=== PATIENT | female | born 1995 | race Hispanic/Latino ===

== ENCOUNTER 2018-02-03 11:53 | Observation (INO) | payer OTHER, MEDICAID ==
[~2018-02-03] VITALS: Ht 154.9 cm; Wt 63.0 kg
[2018-02-03 12:14] VITALS: BP 118/75
[2018-02-03 12:31] LABS: APPEARANCE,URINE Clear (CLEAR); BILIRUBIN,URINE Negative (NEGATIVE); COLOR,URINE Yellow (YELLOW); GLUCOSE, URINE (UA) Negative (NEGATIVE); KETONES,URINE Negative (NEGATIVE); LEUKOCYTE ESTERASE ,URINE Trace (NEGATIVE); NITRATE,URINE Negative (NEGATIVE); OCCULT BLOOD,URINE Negative (NEGATIVE); PROTEIN,URINE Negative (NEGATIVE); UROBILINOGEN,URINE 0.2 mg/dL (0.2-1.0)
[2018-02-03 13:22] LABS: BACTERIA,URINE Rare /HPF (None Seen); RBC,URINE 0-1 /HPF (0-1); SQUAMOUS EPITHELIAL CELL,UR Few /HPF (0-2)
== END 2018-02-03 13:27 | disposition home or self-care (01) ==
LOC: EDH 11:53 → LDH 12:06
PROVIDERS: ADMIT Obstetrics & Gynecology; ATTEND Obstetrics & Gynecology
DX: O26.893 Other specified pregnancy related conditions, third trimester (principal); R10.2 Pelvic and perineal pain; O99.283 Endocrine, nutritional and metabolic diseases complicating pregnancy, third trimester; E03.9 Hypothyroidism, unspecified; Z3A.38 38 weeks gestation of pregnancy
CPT/HCPCS: 81001; 82120; 99285; G0378

== ENCOUNTER 2018-02-08 05:49 | Inpatient (IN) | payer OTHER, MEDICAID ==
[~2018-02-08] VITALS: Ht 154.9 cm; Wt 65.3 kg
[2018-02-08] MEDS ORDERED: LACTATED RINGERS 1000ML 1,000 ML IV PRN (05:52)
[2018-02-08] MEDS ORDERED: LACTATED RINGERS 500 ML 500 ML IV PRN (06:00)
[2018-02-08] MEDS ORDERED: EPHEDRINE SULFATE 50 MG/ML AMPULE IVP PRN ×2 (06:00→19:15)
[2018-02-08] MEDS ORDERED: OXYTOCIN 10 USP UNITS/ML 20 UNIT in LACTATED RINGERS 1000ML 1,000 ML IV SCH (06:00)
[2018-02-08] MEDS ORDERED: NALOXONE HCL 0.4 MG/1 ML ML IV PRN (06:00)
[2018-02-08 06:52] LABS: APPEARANCE,URINE CLEAR (CLEAR); BILIRUBIN,URINE NEGATIVE (NEGATIVE); COLOR,URINE YELLOW (YELLOW); GLUCOSE, URINE (UA) NEGATIVE (NEGATIVE); KETONES,URINE NEGATIVE (NEGATIVE); LEUKOCYTE ESTERASE ,URINE NEGATIVE (NEGATIVE); NITRATE,URINE NEGATIVE (NEGATIVE); OCCULT BLOOD,URINE NEGATIVE (NEGATIVE); PROTEIN,URINE NEGATIVE (NEGATIVE); UROBILINOGEN,URINE 0.2 mg/dL (0.2-1.0)
[2018-02-08 07:09] LABS: HEMATOCRIT 35.6 % (36-48); MEAN CORPUSCULAR HGB CONC 35.7 g/dL (32.0-36.0); MEAN CORPUSCULAR VOLUME 89.8 fL (79-99); NUCLEATED RED BLOOD CELLS 0.1 % (0.0-0.19); PLATELET COUNT (AUTO) 166 K/uL (130-400); RED BLOOD CELL COUNT(AUTO) 3.97 MIL/uL (4.00-5.50); WHITE BLOOD COUNT (AUTO) 8.2 K/uL (4.8-10.8)
[2018-02-08] MEDS ORDERED: OXYTOCIN 10 USP UNITS/ML ONE ×2 (07:34→18:31)
[2018-02-08] MEDS: BUTORPHANOL TARTRATE 2 MG/ML IVP PRN ×3 (09:41→15:49)
[2018-02-08] MEDS ORDERED: OXYTOCIN-LR 20 UNITS/1000 ML 1,000 ML IV PRN (17:12)
[2018-02-08] MEDS ORDERED: DURAMORPH PF1 MG/ML 10ML AMP IV ONE (17:14)
[2018-02-08] MEDS ORDERED: DIPHENHYDRAMINE HCL 25 MG CAPSULE PO PRN (17:15)
[2018-02-08] MEDS ORDERED: SODIUM CHLORIDE 0.9% 10 ML VIAL IVP PRN (17:15)
[2018-02-08] MEDS ORDERED: CALDOLOR 800MG+NS 250ML 250 ML IV PRN (17:15)
[2018-02-08] MEDS ORDERED: ACETAMINOPHEN-CODEINE 300/30MG TAB PO PRN (17:15)
[2018-02-08] MEDS ORDERED: CLINDAMYCIN 900 MG/D5% WATER 50 ML IVPB PRN (17:15)
[2018-02-08] MEDS ORDERED: ACETAMINOPHEN EXTRA STRENGTH 500 MG TABLET PO PRN (17:15)
[2018-02-08] MEDS ORDERED: GENTAMICIN SULFATE 240 MG in SODIUM CHLORIDE 0.9% 100 ML IV PRN (17:15)
[2018-02-08] MEDS ORDERED: MEPERIDINE-PF 75 MG/ML SYG IM PRN (17:15)
[2018-02-08] MEDS ORDERED: DEXTROSE 5 %-0.45 % NACL 1,000 ML IV PRN (17:15)
[2018-02-08] MEDS ORDERED: BISACODYL 10 MG SUPP.RECT RC PRN (17:15)
[2018-02-08] MEDS ORDERED: PROMETHAZINE HCL 25 MG/ML 1ML AMPULE IM PRN ×2 (17:15→19:15)
[2018-02-08] MEDS ORDERED: METHYLERGONOVINE MALEATE 0.2 MG/1 ML ML ONE (17:45)
[2018-02-08] MEDS ORDERED: OXYMETAZOLINE HCL SPRAY 15 ML BOTTLE ONE (18:02)
[2018-02-08] MEDS ORDERED: DiphenhydrAMINE HCL 50 MG/ML VIAL IVP PRN (19:15)
[2018-02-08] MEDS ORDERED: NALOXONE HCL 0.4 MG/1 ML ML IVP PRN ×2 (19:15)
[2018-02-08] MEDS ORDERED: ONDANSETRON HCL MDV 20ML 2 MG/ML VIAL IVP PRN ×2 (19:15)
[2018-02-08] MEDS ORDERED: METOCLOPRAMIDE 10 MG/2 ML VIAL IVP PRN (19:15)
[2018-02-08] MEDS ORDERED: HYDROCODONE/ACETAMINOPHEN 5/325 MG TAB PO PRN ×2 (19:15)
[2018-02-08] MEDS ORDERED: MORPHINE SULFATE 2 MG/ML 1ML SYG IVP PRN (19:15)
[2018-02-08] MEDS ORDERED: ONDANSETRON HCL 4 MG/2 ML 8 MG in SODIUM CHLORIDE 0.9% 50 ML IVP NR (19:15)
[2018-02-08] MEDS ORDERED: FERR1TAB22 PO (20:15)
[2018-02-08] MEDS ORDERED: PREN-196 PO (20:15)
[2018-02-08] MEDS: DOCUSATE SODIUM 100 MG CAP PO SCH (21:00)
[2018-02-08 21:56] VITALS: BP 131/82
[2018-02-08] MEDS ORDERED: LEVO175T4 PO (22:54)
[2018-02-09 00:04] VITALS: BP 125/90
[2018-02-09] MEDS ORDERED: OXYTOCIN 10 USP UNITS/ML ONE (02:17)
[2018-02-09] MEDS: CALDOLOR 800MG+NS 250ML 250 ML IV SCH ×2 (02:24→08:27)
[2018-02-09 02:49] VITALS: BP 122/75
[2018-02-09 06:53] LABS: HEMATOCRIT 29.2 % (36-48); MEAN CORPUSCULAR HEMOGLOBIN 31.1 pg (27.0-33.0); MEAN CORPUSCULAR HGB CONC 34.6 g/dL (32.0-36.0); MEAN CORPUSCULAR VOLUME 90.1 fL (79-99); PLATELET COUNT (AUTO) 135 K/uL (130-400); RED BLOOD CELL COUNT(AUTO) 3.24 MIL/uL (4.00-5.50); RED CELL DISTRIBUTION WIDTH 13.1 % (11.0-15.5); WHITE BLOOD COUNT (AUTO) 11.9 K/uL (4.8-10.8)
[2018-02-09 07:39] VITALS: BP 114/68
[2018-02-09] MEDS: SIMETHICONE 80 MG TAB.CHEW PO PRN ×4 (08:26→21:12)
[2018-02-09] MEDS: LANOLIN 30GM OINTMENT TP PRN (08:26)
[2018-02-09] MEDS: DOCUSATE SODIUM 100 MG CAP PO SCH ×2 (08:26→21:12)
[2018-02-09] MEDS: LIDOCAINE 5% TOPICAL PATCH TP SCH (08:27)
[2018-02-09 10:21] LABS: HEPATITIS Bs ANTIGEN SCREEN P Negative (Negative)
[2018-02-09 11:28] VITALS: BP 103/62
[2018-02-09] MEDS: HYDROCODONE/ACETAMINOPHEN 5/325 MG TAB PO PRN ×2 (14:27→21:20)
[2018-02-09 15:28] VITALS: BP 118/81
[2018-02-09] MEDS: IBUPROFEN 800 MG TAB PO SCH (17:24)
[2018-02-09 19:15] VITALS: BP 119/74
[2018-02-10 00:47] VITALS: BP 111/74
[2018-02-10] MEDS: IBUPROFEN 800 MG TAB PO SCH ×2 (01:10→08:56)
[2018-02-10 03:23] VITALS: BP 126/85
[2018-02-10 07:51] VITALS: BP 118/70
[2018-02-10] MEDS: DOCUSATE SODIUM 100 MG CAP PO SCH (08:50)
[2018-02-10] MEDS: SIMETHICONE 80 MG TAB.CHEW PO PRN ×2 (08:50→14:25)
[2018-02-10] MEDS: LIDOCAINE 5% TOPICAL PATCH TP SCH (08:50)
[2018-02-10 11:15] VITALS: BP 120/79
[2018-02-10] MEDS: LANOLIN 30GM OINTMENT TP PRN (14:21)
== END 2018-02-10 14:35 | disposition home or self-care (01) | DRG 765 ==
LOC: LDH 05:49 → WSH 21:55
PROVIDERS: ADMIT Obstetrics & Gynecology; ATTEND Obstetrics & Gynecology
PROC: 10D00Z1 Extraction of Products of Conception, Low, Open Approach (ICD-10-PCS; principal; 2018-02-09)
PROC: 04LY0ZZ Occlusion of Lower Artery, Open Approach (ICD-10-PCS; 2018-02-09)
DX: O62.0 Primary inadequate contractions (principal); O41.03X0 Oligohydramnios, third trimester, not applicable or unspecified; O69.1XX0 Labor and delivery complicated by cord around neck, with compression, not applicable or unspecified; O76 Abnormality in fetal heart rate and rhythm complicating labor and delivery; O62.2 Other uterine inertia; O99.284 Endocrine, nutritional and metabolic diseases complicating childbirth; E05.90 Thyrotoxicosis, unspecified without thyrotoxic crisis or storm; Z37.0 Single live birth; Z3A.38 38 weeks gestation of pregnancy; O32.4XX0 Maternal care for high head at term, not applicable or unspecified; O62.1 Secondary uterine inertia; O71.89 Other specified obstetric trauma
CPT/HCPCS: 36415; 59510; 81003; 85027; 86592; 86850; 86900; 86901; 87340; A4344; A4606; J0595; J1741; J2210; J2274; J2590; J3490; J7120; Q0163

== ENCOUNTER 2018-03-17 17:18 | Emergency (ER) | payer OTHER, MEDICAID ==
[~2018-03-17 17:18] MED LIST: FERR1TAB22 PO; LEVO175T4 PO; PREN-196 PO
== END 2018-03-17 18:07 | disposition home or self-care (01) ==
LOC: EDH 17:18
DX: O90.0 Disruption of cesarean delivery wound (principal); E07.9 Disorder of thyroid, unspecified; Z88.1 Allergy status to other antibiotic agents; Z79.899 Other long term (current) drug therapy
CPT/HCPCS: 99281

== ENCOUNTER → 2021-04-29 | Outpatient (CLI) | payer BC | END | disposition home or self-care (01) | LOC: RAH 09:03 | PROVIDERS: ATTEND Family Medicine | DX: S83.242A Other tear of medial meniscus, current injury, left knee, initial encounter (principal); S83.282A Other tear of lateral meniscus, current injury, left knee, initial encounter; M25.462 Effusion, left knee; S83.512A Sprain of anterior cruciate ligament of left knee, initial encounter; X58.XXXA Exposure to other specified factors, initial encounter; Y93.89 Activity, other specified; Y92.89 Other specified places as the place of occurrence of the external cause; Y99.8 Other external cause status | CPT/HCPCS: 73721 ==

== ENCOUNTER 2024-01-15 23:58 | Emergency (ER) | payer BC ==
[~2024-01-15] VITALS: Ht 154.9 cm; Wt 61.2 kg
[2024-01-16 00:22] VITALS: BP 117/78; PULSE 94; RESP 17; O2SAT 100
[2024-01-16] MEDS: CLINDAMYCIN IVPB 600MG/50ML 50 ML IV ONE (03:18)
[2024-01-16] MEDS: ACETAMINOPHEN WITH CODEINE 1 TAB TAB PO ONE (03:19)
[2024-01-16 03:42] LABS: BASOPHILS # (AUTO) 0.01 K/uL (0.00-0.20); BASOPHILS % (AUTO) 0.1 % (0.0-5.0); EOSINOPHILS # (AUTO) 0.06 K/uL (0.00-0.70); EOSINOPHILS % (AUTO) 0.6 % (0.0-8.0); IMMATURE GRANULOCYTE ABSOLUTE 0.03 K/uL (0-1); LYMPHOCYTES # (AUTO) 2.2 K/uL (1.0-4.8); LYMPHOCYTES % (AUTO) 22.5 % (21.0-51.0); MEAN CORPUSCULAR HEMOGLOBIN 30.6 pg (27.0-33.0); MEAN CORPUSCULAR HGB CONC 34.3 g/dL (32.0-36.0); MEAN CORPUSCULAR VOLUME 89.3 fL (79-99); MONOCYTES % (AUTO) 10.8 % (3.0-13.0); NEUTROPHILS # (AUTO) 6.3 K/uL (1.8-7.7); NEUTROPHILS % (AUTO) 65.7 % (40.0-77.0); PLATELET COUNT (AUTO) 191 K/uL (130-400); RED BLOOD CELL COUNT(AUTO) 3.92 MIL/uL (4.00-5.50); WHITE BLOOD COUNT (AUTO) 9.6 K/uL (4.8-10.8)
[2024-01-16] MEDS ORDERED: CLIN-141 PO (04:42)
== END 2024-01-16 05:13 | disposition home or self-care (01) ==
LOC: EDH 23:58
DX: O99.611 Diseases of the digestive system complicating pregnancy, first trimester (principal); K04.7 Periapical abscess without sinus; L03.211 Cellulitis of face; E03.9 Hypothyroidism, unspecified; Z79.899 Other long term (current) drug therapy; Z88.0 Allergy status to penicillin; Z3A.12 12 weeks gestation of pregnancy
CPT/HCPCS: 99284; 85025; 36415; 96374; J3490

== ENCOUNTER 2024-07-14 12:59 | Inpatient (IN) | payer BC ==
[~2024-07-14] VITALS: Ht 154.9 cm; Wt 72.6 kg
[~2024-07-14 12:59] MED LIST changes: +CLIN-141 PO
[2024-07-14] MEDS ORDERED: GENTAmicin SULFate 80 MG/2 ML 240 MG in 0.9%NACL 100ML 100 ML IV PRN (13:30)
[2024-07-14] MEDS ORDERED: LACTATED RINGERS 1000ML 1,000 ML IV SCH (13:30)
[2024-07-14 14:14] LABS: APPEARANCE,URINE CLEAR (CLEAR); BILIRUBIN,URINE NEGATIVE (NEGATIVE); COLOR,URINE LIGHT-YELLOW (YELLOW); GLUCOSE, URINE (UA) NEGATIVE (NEGATIVE); KETONES,URINE NEGATIVE (NEGATIVE); LEUKOCYTE ESTERASE ,URINE NEGATIVE Leu/uL (NEGATIVE); NITRATE,URINE NEGATIVE (NEGATIVE); OCCULT BLOOD,URINE SMALL (NEGATIVE); PH,URINE 6.5 (5.0-8.0); PROTEIN,URINE 20 mg/dL (NEGATIVE); UROBILINOGEN,URINE 0.2 mg/dL (0.2-1.0)
[2024-07-14 14:38] LABS: HEMATOCRIT 34.3 % (36-48); MEAN CORPUSCULAR HEMOGLOBIN 28.3 pg (27.0-33.0); MEAN CORPUSCULAR HGB CONC 33.2 g/dL (32.0-36.0); MEAN CORPUSCULAR VOLUME 85.1 fL (79-99); RED BLOOD CELL COUNT(AUTO) 4.03 MIL/uL (4.00-5.50); RED CELL DISTRIBUTION WIDTH 12.7 % (11.0-15.5)
[2024-07-14 14:42] LABS: ADD UA MICROSCOPIC YES
[2024-07-14 14:44] LABS: BACTERIA,URINE FEW /HPF (None Seen); MUCUS,URINE RARE LPF (None Seen); RBC,URINE 0-1 /HPF (0-1); SQUAMOUS EPITHELIAL CELL,UR FEW /HPF (0-2)
[2024-07-14 15:09] LABS: HIV 1&2 ANTIBODY Non-Reactive (Negative)
[2024-07-14 15:10] LABS: HIV-1 p24 Antigen Non-Reactive (Negative)
[2024-07-14 15:24] LABS: FIBRINOGEN 399 mg/dL (180-350)
[2024-07-14 15:25] LABS: INR <= 0.93 (0.85-1.15); PROTHROMBIN TIME 9.5 SEC (9.6-11.6)
[2024-07-14 15:26] LABS: PARTIAL THROMBOPLASTIN TIME 24.2 SEC (26.3-35.5)
[2024-07-14 15:27] LABS: CREATININE 0.8 mg/dL (0.5-1.0); POTASSIUM 3.9 mmol/L (3.5-5.1)
[2024-07-14 15:32] LABS: ALBUMIN 2.3 g/dL (3.5-5.0); BILIRUBIN,TOTAL 0.3 mg/dL (0.2-1.0); TOTAL PROTEIN, SERUM 6.5 g/dL (6.0-8.3); URIC ACID 6.7 mg/dL (2.6-7.2)
[2024-07-14] MEDS: LAbetaLOL 20MG VIAL IV PRN (15:33)
[2024-07-14] MEDS: MEPERIDINE-PF 25 MG/ML SYG IVP ONE (15:57)
[2024-07-14] MEDS: PROMETHAZINE HCL 25 MG/ML 1ML AMPULE IM ONE (16:01)
[2024-07-14] MEDS: CITRIC ACID/SODIUM CITRATE 30 ML UDCUP PO SCH (18:10)
[2024-07-14] MEDS: metoCLOPRAmide 10 MG/2 ML VIAL IVP ONE (18:11)
[2024-07-14] MEDS: CLINDAMYCIN IVPB 900MG/50ML 50 ML IV PRN (18:21)
[2024-07-14] MEDS: FENTanyl CITRate PF 50 MCG/1 ML 2ML VIAL ONE (18:32)
[2024-07-14] MEDS: morPHINE PF 100MG/10ML AMP IV ONE (18:32)
[2024-07-14] MEDS: ePHEDrine SULFate 50 MG/ML AMPULE ONE (18:33)
[2024-07-14] MEDS: ONDANSETRON 4MG INJ ONE (18:33)
[2024-07-14] MEDS: OXYTOCIN 10 USP UNITS/ML ONE (18:51)
[2024-07-14] MEDS: OXYTOCIN 10 UNIT/1ML 10ML VIAL ONE (18:51)
[2024-07-14] MEDS: MISOPROSTOL 200 MCG TABLET ONE (19:57)
[2024-07-14] MEDS ORDERED: MISOPROSTOL 200 MCG TABLET VG SCH (20:00)
[2024-07-14] MEDS: OXYTOCIN-LR 30 UNITS/500ML 500 ML IV SCH (21:23)
[2024-07-14] MEDS: MISOPROSTOL 200 MCG TABLET PR SCH (21:30)
[2024-07-14 22:17] VITALS: BP 131/96; PULSE 80; RESP 18; TEMP 97.8
[2024-07-14 22:48] LABS: HEMATOCRIT 28.5 % (36-48)
[2024-07-14 23:27] VITALS: BP 134/94; PULSE 86; RESP 18; TEMP 98.1
[2024-07-15] MEDS ORDERED: LEVO150C4 PO (02:11)
[2024-07-15] MEDS ORDERED: DiphenhydrAMINE HCL 25 MG CAPSULE PO PRN (03:00)
[2024-07-15] MEDS ORDERED: acetaMINOPHEN 500 MG TABLET PO PRN (03:00)
[2024-07-15] MEDS: DIPH,PERTUSS(ACELL),TET VAC/PF 0.5 ML VIAL IM SCH (03:00)
[2024-07-15 04:00] VITALS: BP 118/87; PULSE 102; RESP 18; TEMP 98.2
[2024-07-15] MEDS: LACTATED RINGERS 1000ML 1,000 ML IV PRN (04:50)
[2024-07-15] MEDS: levoTHYROxine 150 MCG TABLET PO SCH (06:21)
[2024-07-15 07:10] LABS: HEMATOCRIT 23.2 % (36-48); MEAN CORPUSCULAR HEMOGLOBIN 29.5 pg (27.0-33.0); MEAN CORPUSCULAR HGB CONC 33.6 g/dL (32.0-36.0); MEAN CORPUSCULAR VOLUME 87.9 fL (79-99); RED BLOOD CELL COUNT(AUTO) 2.64 MIL/uL (4.00-5.50); WHITE BLOOD COUNT (AUTO) 11.2 K/uL (4.8-10.8)
[2024-07-15] MEDS ORDERED: NON-FORMULARY MEDICATION 1 EACH (Levothyroxine Sodium (Levothyroxine) 150 MCG) PO SCH (07:30)
[2024-07-15 07:40] VITALS: BP 125/95; PULSE 113; RESP 18; TEMP 98.8
[2024-07-15] MEDS ORDERED: BisaCODYL 10 MG SUPP.RECT RC PRN (09:00)
[2024-07-15] MEDS: doCUSate SODIUM 100 MG CAP PO SCH (09:35)
[2024-07-15] MEDS: SIMETHICONE 80 MG TAB.CHEW PO PRN (09:37)
[2024-07-15] MEDS: IBUPROFEN 600 MG TABLET PO PRN (09:37)
[2024-07-15] MEDS: LANOLIN 30GM OINTMENT TP PRN (09:40)
[2024-07-15 12:01] LABS: RAPID PLASMA REAGIN NONREACTIVE (NONREACTIVE)
[2024-07-15 12:13] VITALS: BP 123/81; PULSE 101; RESP 16; TEMP 98.3
[2024-07-15 15:45] VITALS: BP 125/79; PULSE 97; RESP 17; TEMP 97.8
[2024-07-15] MEDS: acetaMINOPHEN WITH coDEINE 1 TAB TAB PO PRN (19:45)
[2024-07-15 19:50] VITALS: BP 138/89; PULSE 91; RESP 19; TEMP 98.6
[2024-07-15] MEDS: HYDROcodone/APAP 5/325 1 TAB TABLET PO PRN (22:20)
[2024-07-15 23:16] VITALS: BP 124/88; PULSE 105; RESP 18; TEMP 97.9
[2024-07-16 03:21] VITALS: BP 132/83; PULSE 91; RESP 18; TEMP 97.7
[2024-07-16 07:23] LABS: MEAN CORPUSCULAR HEMOGLOBIN 28.6 pg (27.0-33.0); MEAN CORPUSCULAR HGB CONC 32.5 g/dL (32.0-36.0); MEAN CORPUSCULAR VOLUME 88.1 fL (79-99); RED BLOOD CELL COUNT(AUTO) 2.27 MIL/uL (4.00-5.50); RED CELL DISTRIBUTION WIDTH 13.4 % (11.0-15.5); WHITE BLOOD COUNT (AUTO) 9.8 K/uL (4.8-10.8)
[2024-07-16 07:35] VITALS: BP 138/99; PULSE 86; RESP 17; TEMP 97.4
[2024-07-16 12:05] VITALS: BP 125/74; PULSE 111; RESP 18; TEMP 97.6
[2024-07-16 15:47] VITALS: BP 152/110; PULSE 93; RESP 18; TEMP 97.8
[2024-07-16 16:02] VITALS: BP 126/93; PULSE 82
[2024-07-16] MEDS: SIMETHICONE 80 MG TAB.CHEW PO PRN (16:05)
[2024-07-16 18:17] LABS: HEMATOCRIT 26.1 % (36-48)
== END 2024-07-16 19:05 | disposition home or self-care (01) | DRG 788 ==
LOC: EDH 12:59 → OBSVTOIN 13:00 → LDH 13:00 → WSH 22:03 → UNDODISIN 07-16 19:05
PROVIDERS: ADMIT Obstetrics & Gynecology; ATTEND Obstetrics & Gynecology
PROC: 30233N1 Transfusion of Nonautologous Red Blood Cells into Peripheral Vein, Percutaneous Approach (ICD-10-PCS; 2024-07-14)
PROC: 10D00Z1 Extraction of Products of Conception, Low, Open Approach (ICD-10-PCS; principal; 2024-07-14 18:30)
DX: O34.211 Maternal care for low transverse scar from previous cesarean delivery (principal); Z37.0 Single live birth; Z3A.38 38 weeks gestation of pregnancy
CPT/HCPCS: 36415; 36430; 80053; 81001; 84550; 85014; 85018; 85027; 85384; 85610; 85730; 86592; 86701; 86850; 86900; 86901; 86923; 87340; 87390; G0378; J1580; J2175; J2274; J2405; J2550; J2590; J2765; J3010; J3490; J7120; P9016